=== PATIENT | male | born 1970 | race Caucasian/White ===

== ENCOUNTER → 2016-08-28 | Outpatient (CLI) | payer OTHER ==
[~2016-08-28] MED LIST: ALBUAER2 INH; INSU1INJ23 SC; LISI-461 PO
--- NOTE | 2016-08-28 13:37 | DIAGNOSTIC IMAGING REPORT ---
TWO VIEW CHEST CLINICAL HISTORY: Cough. FINDINGS: PA and lateral chest radiographs are compared to chest x-ray and chest CT dated 07/30/2015. The cardiomediastinal silhouette is unremarkable. There is mild patchy airspace consolidation seen only on the lateral view, likely in the retrocardiac region. The lungs and pleural spaces are otherwise clear. There is no pneumothorax. The bony thorax appears intact. IMPRESSION: Suspect mild patchy airspace consolidation in the retrocardiac region only seen on the lateral projection. Correlate clinically for evidence of pneumonia. Electronically signed by: Xavier Shay M.D. 08/28/2016 1:35 PM
== END | disposition home or self-care (01) ==
LOC: C.RAD1850 11:27
PROVIDERS: ATTEND Internal Medicine
DX: R05 Cough (principal)

== ENCOUNTER → 2016-09-04 | Outpatient (CLI) | payer OTHER ==
--- NOTE | 2016-09-04 15:02 | DIAGNOSTIC IMAGING REPORT ---
CHEST 2 VIEWS ROUTINE CLINICAL HISTORY: J15.9 Bacterial pneumonia COMPARISON STUDY: 1-17 FINDINGS: The cardiac and mediastinal contours are normal. There is no evidence of focal pulmonary consolidation. There is no evidence of failure. No pleural effusions are visualized.[ IMPRESSION: No active disease in the chest. Electronically signed by: Bhanu Montalvo M.D. 09/04/2016 3:00 PM Dictated Date/Time: 09/04/2016 3:00 PM
== END | disposition home or self-care (01) ==
LOC: C.RAD1850 14:53
PROVIDERS: ATTEND Internal Medicine
DX: J15.9 Unspecified bacterial pneumonia (principal)

== ENCOUNTER → 2016-09-07 | Outpatient (CLI) | payer OTHER ==
--- NOTE | 2016-09-07 17:50 | DIAGNOSTIC IMAGING REPORT ---
LEFT RIBS UNILATERAL WITH PA CHEST CLINICAL HISTORY: Left-sided rib pain. Cough. COMPARISON STUDY: Chest x-ray dated 09/04/2016 FINDINGS: The erect chest reveals no pneumothorax. There is no focal pulmonary consolidation. There are minor left basilar atelectatic changes. No left-sided rib fractures are visualized. IMPRESSION: No evidence of pneumothorax. No left-sided rib fractures are visualized. Electronically signed by: Bhanu Montalvo M.D. 09/07/2016 5:48 PM Dictated Date/Time: 09/07/2016 5:47 PM
== END | disposition home or self-care (01) ==
LOC: C.RAD 17:13
PROVIDERS: ATTEND Internal Medicine
DX: R07.81 Pleurodynia (principal)

== ENCOUNTER → 2017-01-25 | Outpatient (CLI) | payer OTHER ==
--- NOTE | 2017-01-25 13:22 | DIAGNOSTIC IMAGING REPORT ---
ULTRASOUND RIGHT LOWER EXTREMITY VENOUS CLINICAL HISTORY: Right calf pain. COMPARISON STUDY: No priors. TECHNIQUE: Real-time, grayscale, and color Doppler sonography of the deep veins of the right lower extremity was performed from the inguinal crease to the calf. Compression and augmentation were utilized. FINDINGS: There is no sonographic evidence of deep venous thrombosis identified in the right lower extremity. The common femoral, superficial femoral, and popliteal veins are patent and normally compressible. The greater saphenous vein and the profunda femoris vein at the junction with the common femoral vein are clear. The visualized calf veins are patent. IMPRESSION: There is no sonographic evidence of deep venous thrombosis identified in the right lower extremity. Electronically signed by: Xavier Shay M.D. 01/25/2017 1:20 PM Dictated Date/Time: 01/25/2017 1:20 PM
== END | disposition home or self-care (01) ==
LOC: C.ULTR 12:48
PROVIDERS: ATTEND Internal Medicine
DX: M79.669 Pain in unspecified lower leg (principal)

== ENCOUNTER → 2017-02-26 | Outpatient (CLI) | payer OTHER ==
[2017-02-26 12:46] LABS: ESTIMATED AVERAGE GLUCOSE 243 mg/dl; HA1C FLAG Normal (Normal)
[2017-02-26 13:17] LABS: BLOOD UREA NITROGEN 17 mg/dl (7-18); BUN/CREATININE RATIO 19.4 (10-20); CALCIUM 9.1 mg/dl (8.5-10.1); CARBON DIOXIDE 29 mmol/L (21-32); CHLORIDE 103 mmol/L (98-107); CREATININE 0.89 mg/dl (0.60-1.40); GLUCOSE 257 mg/dl (70-99); POTASSIUM 4.5 mmol/L (3.5-5.1); SODIUM 138 mmol/L (136-145)
== END | disposition home or self-care (01) ==
LOC: C.LABPBG 08:28
PROVIDERS: ATTEND Internal Medicine
DX: E11.65 Type 2 diabetes mellitus with hyperglycemia (principal); E55.9 Vitamin D deficiency, unspecified; E05.90 Thyrotoxicosis, unspecified without thyrotoxic crisis or storm

== ENCOUNTER → 2017-04-26 | Outpatient (CLI) | payer OTHER | END | disposition home or self-care (01) | LOC: C.LAB1850 16:53 | PROVIDERS: ATTEND Internal Medicine | DX: E05.90 Thyrotoxicosis, unspecified without thyrotoxic crisis or storm (principal) ==

== ENCOUNTER → 2017-08-04 | Outpatient (CLI) | payer OTHER ==
[2017-08-04 12:04] LABS: ESTIMATED AVERAGE GLUCOSE 220 mg/dl; HA1C FLAG Normal (Normal)
[2017-08-04 12:29] LABS: THYROID STIMULATING HORMONE 1.92 uIu/ml (0.300-4.500)
== END | disposition home or self-care (01) ==
LOC: C.LAB 10:43
PROVIDERS: ATTEND Physician Assistant
DX: E03.9 Hypothyroidism, unspecified (principal); E11.65 Type 2 diabetes mellitus with hyperglycemia

== ENCOUNTER → 2017-09-28 | Outpatient (CLI) | payer OTHER ==
--- NOTE | 2017-09-28 12:36 | DIAGNOSTIC IMAGING REPORT ---
ULTRASOUND BILATERAL LOWER EXTREMITY VENOUS CLINICAL HISTORY: Bilateral leg pain. COMPARISON STUDY: Right lower extremity venous ultrasound dated 01/25/2017. TECHNIQUE: Real-time, grayscale, and color Doppler sonography of the deep veins of the right and left lower extremity was performed from the inguinal crease to the calf. Compression and augmentation were utilized. FINDINGS: There is no sonographic evidence of deep venous thrombosis identified in the right or left lower extremity. The common femoral, superficial femoral, and popliteal veins are patent and normally compressible bilaterally. The greater saphenous vein and the profunda femoris vein at the junction with the common femoral vein are clear in both legs. The visualized calf veins are patent bilaterally. IMPRESSION: There is no sonographic evidence of deep venous thrombosis identified in the right or left lower extremity. Electronically signed by: Xavier Shay M.D. 09/28/2017 12:35 PM Dictated Date/Time: 09/28/2017 12:34 PM
== END | disposition home or self-care (01) ==
LOC: C.ULTRBC 12:10
PROVIDERS: ATTEND Podiatrist
DX: I82.403 Acute embolism and thrombosis of unspecified deep veins of lower extremity, bilateral (principal)

== ENCOUNTER → 2017-12-24 | Outpatient (CLI) | payer OTHER ==
--- NOTE | 2017-12-24 10:57 | DIAGNOSTIC IMAGING REPORT ---
MRI OF THE RIGHT ANKLE WITHOUT CONTRAST CLINICAL HISTORY: Right ankle pain. Osteoarthritis. COMPARISON STUDY: Right ankle radiographs January 15, 2015. TECHNIQUE: Utilizing a 1.5 Carole magnet and dedicated coil, multiplanar, multiecho imaging of the right ankle was performed without intravenous or intraarticular contrast. FINDINGS: Note is made of subchondral cystic change within the medial talar dome that measures 2 x 1 x 1.2 cm. This is moderate associated marrow edema. There is moderate associated chondromalacia with mild subchondral signal abnormality within the distal left tibia consistent with osteoarthritis. No loose bodies are identified within the tibiotalar joint. There is no tibiotalar talar joint effusion. By MRI criteria, this represents a stable osteochondral lesion. Subtalar joint is within normal limits. Achilles tendon is intact. Flexor, peroneal and extensor tendons are intact. Intrinsic ligaments of the right ankle are intact. No suspicious marrow replacement. No mass or fluid collection is shown. IMPRESSION: 2 x 1 x 1.2 cm focus of subchondral cystic change within the medial talar dome with moderate associated marrow edema consistent with a stable osteochondral lesion with secondary osteoarthritis. Electronically signed by: Kennedy Jorge M.D. 12/24/2017 10:56 AM Dictated Date/Time: 12/24/2017 10:46 AM
--- NOTE | 2017-12-24 11:05 | DIAGNOSTIC IMAGING REPORT ---
RIGHT OF THE RIGHT MID AND FOREFOOT WITHOUT CONTRAST CLINICAL HISTORY: Right foot and ankle pain. Osteoarthritis. COMPARISON STUDY: Right ankle and foot radiographs January 15, 2015. TECHNIQUE: Utilizing a 1.5 Carole magnet, multiplanar, multiecho imaging of the right mid and forefoot was performed without intravenous contrast. Please note that the right ankle and right hindfoot were imaged on the right ankle MRI. FINDINGS: Alignment of the right midfoot and forefoot is anatomic. The tarsometatarsal joints are intact and there is no marrow edema or marrow replacement. No erosions are identified. No mass or fluid collection is identified. Visualized portions of the flexor and extensor tendons are intact. There is no evidence for significant osteoarthritis within the right midfoot or forefoot. IMPRESSION: Unremarkable MRI of the right mid and forefoot. Electronically signed by: Kennedy Jorge M.D. 12/24/2017 11:04 AM Dictated Date/Time: 12/24/2017 11:00 AM
== END | disposition home or self-care (01) ==
LOC: C.MRI 09:20
PROVIDERS: ATTEND Podiatrist
DX: M19.071 Primary osteoarthritis, right ankle and foot (principal); M65.871 Other synovitis and tenosynovitis, right ankle and foot; E11.42 Type 2 diabetes mellitus with diabetic polyneuropathy

== ENCOUNTER 2023-09-07 18:24 | Observation (INO) ==
--- NOTE | 2023-09-07 18:35 | ED Triage Note ---
Date of Service September 07, 2023 Provider in Triage Author: Merline Haynes History of Present Illness This patient was briefly evaluated while in triage. An abbreviated physical exam was performed. This patient is a 53-year-old Male who presents to the ED for evaluation of chest pain. He states that it started 2 days ago. He states it is more of a pressure than a pain and is intermittent. He does report it is exertional. He has some shortness of breath when active. He states his blood pressure was elevated when they checked it at work. He does report a cough since he had RSV a few weeks ago. He denies any cardiac history, does report a history of hypertension. Physical Exam VITALS: Vitals are noted on the nurse's note and reviewed by myself. GENERAL: This is a 53-year-old male, in no acute distress, nondiaphoretic, well- developed well-nourished. HEART: Tachycardic, regular rhythm without murmurs gallops or rubs. LUNGS: Clear to auscultation bilaterally without wheezes, rales or rhonchi. NEURO: Patient was alert and oriented to person place and time. Initial orders for labs and / or imaging were placed and patient was placed in the waiting area until a bed is available. Please see further documentation for the full ED course. MDM / Impression Impression Impression: Chest pain Impression: Chest pain Qualifiers: Chest pain type: unspecified Qualified Code(s): R07.9 - Chest pain, unspecified
[2023-09-07 19:06] LABS: Basophils # (auto) 0.05 K/uL (0.00-0.20); Basophils % (auto) 0.4 %; Eosinophils # (auto) 0.13 K/uL (0.00-0.50); Eosinophils % (auto) 1.2 %; Hematocrit (blood only) 46.7 % (42.0-52.0); Hemoglobin 15.7 g/dl (14.0-18.0); Immature Granulocytes # (auto) 0.05 K/uL (0.01-0.20); Immature Granulocytes % (auto) 0.4 %; Lymphocytes # (auto) 2.68 K/uL (1.20-3.40); Lymphocytes % (auto) 23.9 %; Mean Corpuscular Hemoglobin 28.8 pg (25.0-34.0); Mean Corpuscular Hgb Conc 33.6 g/dL (32.0-36.0); Mean Corpuscular Volume 85.5 fL (80.0-100.0); Mean Platelet Volume 10.2 fL (9.4-12.4); Monocytes % (auto) 6.3 %; Neutrophils # (auto) 7.59 K/uL (1.40-6.50); Neutrophils % (auto) 67.8 %; Platelet Count 339 K/uL (130-400); RDW Coefficient of Variation 13.1 % (11.5-14.5); RDW Standard Deviation 40.5 fL (36.4-46.3); Red Blood Count 5.46 M/uL (4.70-6.10)
--- NOTE | 2023-09-07 19:15 | XRay Report ---
SINGLE VIEW CHEST CLINICAL HISTORY: Atypical chest pain FINDINGS: A PA chest radiograph is compared to study dated 08/05/2023. The cardiomediastinal silhouet te is unremarkable. The lungs and pleural spaces are clear. No pneumothorax is seen. The bony thorax is grossly intact. Cholecystectomy clips are seen in the right upper quadrant. IMPRESSION: No active disease in the chest. ACT 112: Negative or not required by law. Electronically signed by: Xavier Shay M.D. 09/07/2023 7:14 PM
[2023-09-07 19:20] LABS: Albumin Globulin Ratio 1.5 (0.9-2); Albumin Level 4.7 gm/dl (3.4-5.0); BUN Creatinine Ratio 21.7 (10-20); Bilirubin,Total 0.4 mg/dl (0.2-1.0); Calcium 9.7 mg/dl (8.6-10.3); Est GFR (African American) 114.8 ml/min; Est GFR (Non-African American) 99.1 ml/min; Globulin 3.1 gm/dl (2.5-4.0); Potassium 4.2 mmol/L (3.5-5.1); Total Protein 7.8 gm/dl (6.0-8.3)
[2023-09-07 19:38] LABS: INR 0.9 (0.9-1.1); Partial Thromboplastin Ratio 0.9; Partial Thromboplastin Time 26 Seconds (21-31); Prothrombin Time 10.3 Seconds (9.0-12.0)
--- NOTE | 2023-09-07 20:33 | Emergency Department Note ---
Impression & Plan Chest pain ADMIT ED Provider Note HPI: History obtained from patient The patient is a 53-year-old gentleman with history of insulin-dependent diabetes, hypertension, presents emergency department chief complaint of chest pain or shortness of breath with exertion. Patient states he has been having the symptoms for about the past 2 days. Patient states that his dyspnea is worse than his chest pain, he states he gets a sensation of chest "tightness" centrally in his chest. Patient denies any abdominal pain, denies any nausea or vomiting. On arrival here to the ED the patient is mildly hypertensive, tachycardic at 108, he is otherwise in no acute distress. ROS: - Per HPI Differential Diagnosis: Acute coronary syndrome, pulmonary embolism, aortic dissection, pneumothorax, costochondritis, amongst other potential pathologies. *Outpatient medications and allergy history reviewed. PE: General: Alert HEENT: Normocephalic, trachea midline Eyes: Extraocular eye movement is intact, no scleral erythema Pulmonary: Clear to auscultation bilaterally, no wheezing Cardio: Regular rate and rhythm GI: Abdomen is soft to palpation : No suprapubic tenderness MSK: No evidence of trauma or malformation of the extremities, no edema Skin: No evidence of rash Neuro: Alert, no focal deficits Psychiatric: Cooperative INDEPENDENT INTERPRETATIONS: quality assurance monitor chassis: (As interpreted by myself): - An order was placed for continuous cardiac monitoring - Patient was noted to be in sinus rhythm with a rate of 95 EKG: (As interpreted by myself): Rate: 107 Rhythm: Sinus tachycardia Intervals: Within normal limits ST changes: No ST elevation Time: 1838 Chest x-ray: (As interpreted by myself): No acute disease Medical Decision Making: Shortly after the patient arrived IV was established and lab work obtained, patient was placed on conveyor monitor. Lab work shows mild leukocytosis at 11.2, hemoglobin is normal, platelet count is normal, CMP does not show any evidence of any critical findings, troponin is negative x 1. EKG does not show any acute ischemic changes, does show some LVH. Chest x-ray per my interpretation does not show any acute process. Patient denies any active chest pain but states he has been having some chest pain with exertion recently. Given his multiple risk factors I think he should be admitted to the hospital to which the patient is in agreement. Heart score is noted to be 5. [facility] hospitalist service was consulted for admission and the patient was placed for admission in stable condition. Consultants/Discussions held with other healthcare providers: -Hospitalist, Dr. Hickey Disposition discussion held by myself with: -Patient Diagnosis: 1. Chest pain, acute, exertional 2. History of insulin-dependent diabetes 3. History of hypertension 4. Family history of coronary artery disease Disposition: Admission Brent Boss DO Emergency Medicine Past Med/Surg History Medical History (Updated 09/07/23 @ 23:45 by Brent Boss DO) Tachycardia Chronic, HR in low 100s dating back 2+ years ago History of COVID-19 Dx 10/2020 Hx of migraines DJD (degenerative joint disease), cervical Diabetes mellitus, type 2 Uses freestyle cesar monitoring device Hypothyroidism Peripheral neuropathy Hypertension Hyperlipidemia Surgical History History of esophagogastroduodenoscopy (EGD) History of cholecystectomy History of repair of rotator cuff RT History of knee surgery LEFT TENDON REPAIR History of colonoscopy History of tooth extraction Family History Mother Diabetes Cataract Hypertension Father Diabetes Family history of reaction to anesthesia Grandmother (Maternal) Alzheimer disease Myocardial infarction Grandmother (Paternal) Myocardial infarction Brother MVA (motor vehicle accident) Denies family history of Colon cancer Ovarian cancer Prostate cancer Breast cancer Social History Smoking Status: Never smoker Second Hand Exposure: No; Do You Dip or Chew Tobacco: No; Hx Alcohol Use: No Hx Substance Use: No Preferred Language: Dutch Communication Ability: Effective Visual Impairment: No Limitations Field Scout Required: No Beliefs That Will Affect Care: None marital status: Current Living Situation: Spouse, Parent and Family Current Living Situation Comment: Lives with , daughter and mother current occupational status: employed Feels Safe at Home: Yes Childhood Exposure to Second-Hand Smoke: Yes Dental Care, Regularly: No Physical Activity Frequency: Does not Exercise Seatbelt Use: always Sunscreen Use: Yes Assistive Devices: Glasses Allergies Allergies Allergy/AdvReac Type Severity Reaction Status Date / Time metformin AdvReac Intermediate Diarrhea Verified 08/16/23 14:56 Home Meds Home Medications Medication Instructions Recorded Confirmed aspirin 81 mg tablet,delayed 81 mg PO QAM 07/07/21 09/07/23 release (Adult Low Dose Aspirin) pantoprazole 40 mg tablet,delayed 40 mg PO QAM 01/30/22 09/07/23 release glucagon 3 mg/actuation nasal spray 3 mg intranasal ONCE PRN 09/07/23 09/07/23 Hypoglycemia levothyroxine 75 mcg tablet 75 mcg PO DAILYBB 09/07/23 09/07/23 Previous Rx's Medication Instructions Recorded blood sugar diagnostic (OneTouch #300 ea 12/26/21 Verio test strips) gabapentin 600 mg tablet 600 mg PO BID #60 tabs 07/28/22 losartan 50 mg tablet 50 mg PO QAM #30 tabs 07/31/22 pen needle, diabetic 32 gauge x #400 ea 12/15/22 5/32" (BD Radha 2nd Gen Pen Needle) insulin syringe-needle U-100 1 mL #300 ea 01/17/23 31 gauge x 15/64" (BD Veo Insulin Syringe Ultra-Fine) FreeStyle Cesar 3 Sensor #6 ea 02/12/23 (blood-glucose sensor) insulin regular hum U-500 conc 500 See Rx Instructions subcut QPM 30 06/14/23 unit/mL(3 mL) subcut pen (Humulin days #24 mL R U-500 (Conc) Insulin Kwikpen) albuterol sulfate 90 mcg/actuation 2 puff inhalation QID PRN 08/16/23 aerosol inhaler shortness of breath or wheezing #8.5 grams Results & Data (ED) Vital Signs Vital Signs - 24 hr 09/07/23 18:32 09/07/23 20:29 09/07/23 20:30 Temperature 36.2 C L Temperature Source Temporal Artery Scan Pulse Rate 113 H Pulse Rate [Apical] 108 H Pulse Rate from SpO2 Sensor Pulse Rhythm Regular Pulse Strength Normal Respiratory Rate 20 18 Respiratory Effort / Characteristics Non-Labored Spontaneous Non-Labored Spontaneous Respiratory Depth Normal Normal Respiratory Pattern Regular Regular Blood Pressure 139/79 Blood Pressure [Right Arm] 140/109 H Blood Pressure Mean 99 Blood Pressure Mean [Right Arm] 119 Blood Pressure Position Sitting Pulse Oximetry 95 95 Oxygen Delivery Method Room Air Room Air Room Air Oxygen Flow Rate 0 Sepsis Recent Fever Within 48 Hours No Sepsis New/Unexplained Change in Mental Status No Sepsis Action Taken by Nursing No Action Required 09/07/23 20:30 09/07/23 20:30 09/07/23 20:30 Temperature Temperature Source Pulse Rate 108 H 108 H 108 H Pulse Rate [Apical] Pulse Rate from SpO2 Sensor 108 H Pulse Rhythm Pulse Strength Respiratory Rate 20 Respiratory Effort / Characteristics Respiratory Depth Respiratory Pattern Blood Pressure Blood Pressure [Right Arm] Blood Pressure Mean Blood Pressure Mean [Right Arm] Blood Pressure Position Pulse Oximetry 96 96 Oxygen Delivery Method Room Air Oxygen Flow Rate Sepsis Recent Fever Within 48 Hours Sepsis New/Unexplained Change in Mental Status Sepsis Action Taken by Nursing 09/07/23 21:00 Temperature Temperature Source Pulse Rate 112 H Pulse Rate [Apical] Pulse Rate from SpO2 Sensor 112 H Pulse Rhythm Pulse Strength Respiratory Rate 19 Respiratory Effort / Characteristics Respiratory Depth Respiratory Pattern Blood Pressure Blood Pressure [Right Arm] Blood Pressure Mean Blood Pressure Mean [Right Arm] Blood Pressure Position Pulse Oximetry 96 Oxygen Delivery Method Oxygen Flow Rate Sepsis Recent Fever Within 48 Hours Sepsis New/Unexplained Change in Mental Status Sepsis Action Taken by Nursing Laboratory Data 09/07/23 18:38 09/07/23 18:38 Lab Results 09/07/23 Range/Units 18:38 WBC 11.20 H (4.8-10.8) K/ul RBC 5.46 (4.70-6.10) M/uL Hgb 15.7 (14.0-18.0) g/dl Hct 46.7 (42.0-52.0) % MCV 85.5 (80.0-100.0) fL MCH 28.8 (25.0-34.0) pg MCHC 33.6 (32.0-36.0) g/dL RDW Std Deviation 40.5 (36.4-46.3) fL RDW Coeff of [place] 13.1 (11.5-14.5) % Plt Count 339 (130-400) K/uL MPV 10.2 (9.4-12.4) fL Immature Gran % (Auto) 0.4 % Neut % (Auto) 67.8 % Lymph % (Auto) 23.9 % [place] % (Auto) 6.3 % Eos % (Auto) 1.2 % Baso % (Auto) 0.4 % Neut # (Auto) 7.59 H (1.40-6.50) K/uL Lymph # (Auto) 2.68 (1.20-3.40) K/uL [place] # (Auto) 0.70 H (0.11-0.59) K/uL Eos # (Auto) 0.13 (0.00-0.50) K/uL Baso # (Auto) 0.05 (0.00-0.20) K/uL Immature Gran # (Auto) 0.05 (0.01-0.20) K/uL PT 10.3 (9.0-12.0) Seconds INR 0.9 (0.9-1.1) APTT 26 (21-31) Seconds PTT Ratio 0.9 Sodium 140 (136-145) mmol/L Potassium 4.2 (3.5-5.1) mmol/L Chloride 104 (98-107) mmol/L Carbon Dioxide 29 (21-32) mmol/L Anion Gap 7 (3-11) BUN 18 (6-23) mg/dl Creatinine 0.83 (0.6-1.4) mg/dl Est Cr Clr Drug Dosing 124.0 ml/min Est GFR ( Amer) 114.8 ml/min Est GFR (Non-Af Amer) 99.1 ml/min BUN/Creatinine Ratio 21.7 H (10-20) Glucose 154 H (70-99(Fasting)) mg/dl Calcium 9.7 (8.6-10.3) mg/dl Total Bilirubin 0.4 (0.2-1.0) mg/dl AST 12 L (13-39) U/L ALT 13 (7-52) U/L Alkaline Phosphatase 91 (34-104) U/L Troponin I High Sens 4.0 (0-20) pg/ml Total Protein 7.8 (6.0-8.3) gm/dl Albumin 4.7 (3.4-5.0) gm/dl Globulin 3.1 (2.5-4.0) gm/dl Albumin/Globulin Ratio 1.5 (0.9-2) Imaging Data Radiologist's Impression: Chest X-Ray 09/07/23 18:45 SINGLE VIEW CHEST CLINICAL HISTORY: Atypical chest pain FINDINGS: A PA chest radiograph is compared to study dated 08/05/2023. The cardiomediastinal silhouette is unremarkable. The lungs and pleural spaces are clear. No pneumothorax is seen. The bony thorax is grossly intact. Cholecystectomy clips are seen in the right upper quadrant. IMPRESSION: No active disease in the chest. ACT 112: Negative or not required by law. Electronically signed by: Xavier Shay M.D. 09/07/2023 7:14 PM Discharge Plan Visit Data Chief Complaint: Chest Pain Stated Complaint: CHEST DISCOMFORT, HIGH BP,160/87 ED Provider: Brent Boss Discharge Problem: Chest pain Patient Disposition: Admitted As Inpatient Discharge Instructions Interventions: ED Discharge Assessment Last Done: 09/07/23 23:28 Discharge Problem: Chest pain Qualifiers: Chest pain type: unspecified Qualified Code(s): R07.9 - Chest pain, unspecified
--- NOTE | 2023-09-07 21:18 | History & Physical Report ---
Date of Service September 07, 2023 Assessment & Plan (1) Chest pain: Plan: -Pt presents with 2 days of chest pressure w/ accompanying dyspnea -Negative troponin on admission, EKG w/o acute ST change -Unlikely to represent cardiac chest pain/ACS at present, suspect possible bronchospasm as etiology -TTE ordered -Consider repeat of stress testing as outpatient -Telemetry monitoring (2) Tachycardia: Plan: -Mild sinus tachycardia in 100s since admission -Per previous chart review and pt, this appears to be his baseline over past few years -No electrolyte abnormalities noted -Telemetry monitoring (3) Hypertension: Plan: -Mildly hypertensive 140/109 on admission -Continue losartan (4) Diabetes mellitus type 2, uncontrolled: Plan: -A1C 10.7% in 05/2023 -Lantus, SSI while in hospital. Will adjust dosing as needed for BSG control -Continue gabapentin -Monitor BSGs (5) Hypothyroidism: Plan: -Continue levothyroxine (6) GERD (gastroesophageal reflux disease): Plan: -Continue pantoprazole Plan FENGI: DM2 Code status: Full DVT prophylaxis: Lovenox Isolation: None Unit: Medical/surgical with telemetry Disposition planning: Anticipate home History of Present Illness Chief Complaint: Chest pain Primary Care Provider: Joel Hines MD Pt is 53 yo M with PMH IDDM2 w/ peripheral neuropathy, HTN, GERD, hypothyroidism presenting with chest pain. Pt reports onset of chest pressure 2 days prior after exertion while shoveling snow. Chest pressure usually accompanied by dyspnea. Located midsternal, tight sensation, non-radiating, moderate severity. Symptoms occur consistently with exertion, do not occur at rest. No prior history of similar symptoms, had negative stress testing over 10 years prior. Pt arrived to ER with mild tachycardia in 100s. Initial evaluation with unremarkable CXR, CBC, CMP, troponin. EKG NSR w/o acute ST change. At present, pt reports mild chest tightness but no dyspnea. No new complaints. Allergies Allergy/AdvReac Type Severity Reaction Status Date / Time metformin AdvReac Intermediate Diarrhea Verified 08/16/23 14:56 Home Medications Medication Instructions Recorded Confirmed Type aspirin 81 mg tablet,delayed 81 mg PO QAM 07/07/21 09/07/23 History release (Adult Low Dose Aspirin) blood sugar diagnostic (EarlyTracksuch #300 ea 12/26/21 09/07/23 Rx Verio test strips) pantoprazole 40 mg tablet,delayed 40 mg PO QAM 01/30/22 09/07/23 History release gabapentin 600 mg tablet 600 mg PO BID #60 tabs 07/28/22 09/07/23 Rx losartan 50 mg tablet 50 mg PO QAM #30 tabs 07/31/22 09/07/23 Rx pen needle, diabetic 32 gauge x #400 ea 12/15/22 09/07/23 Rx 5/32" (BD Radha 2nd Gen Pen Needle) insulin syringe-needle U-100 1 mL #300 ea 01/17/23 09/07/23 Rx 31 gauge x 15/64" (BD Veo Insulin Syringe Ultra-Fine) FreeStyle Cesar 3 Sensor #6 ea 02/12/23 09/07/23 Rx (blood-glucose sensor) insulin regular hum U-500 conc 500 See Rx Instructions subcut QPM 30 06/14/23 09/07/23 Rx unit/mL(3 mL) subcut pen (Humulin days #24 mL R U-500 (Conc) Insulin Kwikpen) albuterol sulfate 90 mcg/actuation 2 puff inhalation QID PRN 08/16/23 09/07/23 Rx aerosol inhaler shortness of breath or wheezing #8.5 grams glucagon 3 mg/actuation nasal spray 3 mg intranasal ONCE PRN 09/07/23 09/07/23 History Hypoglycemia levothyroxine 75 mcg tablet 75 mcg PO DAILYBB 09/07/23 09/07/23 History Past Med/Surg History Medical History (Updated 09/07/23 @ 23:45 by Brent Boss DO) Tachycardia Chronic, HR in low 100s dating back 2+ years ago History of COVID-19 Dx 10/2020 Hx of migraines DJD (degenerative joint disease), cervical Diabetes mellitus, type 2 Uses freestyle cesar monitoring device Hypothyroidism Peripheral neuropathy Hypertension Hyperlipidemia Surgical History History of esophagogastroduodenoscopy (EGD) History of cholecystectomy History of repair of rotator cuff RT History of knee surgery LEFT TENDON REPAIR History of colonoscopy History of tooth extraction Family History Mother Diabetes Cataract Hypertension Father Diabetes Family history of reaction to anesthesia Grandmother (Maternal) Alzheimer disease Myocardial infarction Grandmother (Paternal) Myocardial infarction Brother MVA (motor vehicle accident) Denies family history of Colon cancer Ovarian cancer Prostate cancer Breast cancer Social History Smoking Status: Never smoker Second Hand Exposure: No; Do You Dip or Chew Tobacco: No; Hx Alcohol Use: No Hx Substance Use: No Preferred Language: Micronesian Communication Ability: Effective Visual Impairment: No Limitations Highway Maintenance Supervisor Required: No Beliefs That Will Affect Care: None marital status: Current Living Situation: Spouse Current Living Situation Comment: Lives with , daughter and mother current occupational status: employed Feels Safe at Home: Yes Safety Concerns: Feels Safe At This Time Childhood Exposure to Second-Hand Smoke: Yes Dental Care, Regularly: No Physical Activity Frequency: Does not Exercise Seatbelt Use: always Sunscreen Use: Yes Assistive Devices: Glasses Review of Systems Review of Systems: Per HPI/Subjective Physical Exam Physical Exam: General: well-appearing, no acute distress HEENT: PERRL, EOMI, conjunctivae clear without injection, anicteric sclerae, moist mucous membranes, clear oropharynx without exudate or erythema Neck: supple, trachea midline, no thyromegaly, no JVD, no cervical lymphadenopathy CV: RRR, normal S1 and S2, no murmurs Resp: CTAB, no increased work of breathing, no crackles or wheezes Abd: Soft, nontender, nondistended, no guarding or rebound, no hepatosplenomegaly MSK: Normal bulk of all four extremities. No reproducible chest pain with palpation, no chest wall tenderness to palpation Neuro: AOx3, no focal motor or sensory deficits Skin: no rashes or lesions, warm and dry Ext: no LE peripheral edema or erythema, capillary refill <2s in all four extremities, 2+ LE peripheral pulses b/l Results & Data Results & Data Vital Signs (Past 12 Hours) Vital Signs Temp Pulse Pulse Resp BP BP Pulse Ox 09/07/23 20:30 108 H 96 09/07/23 20:30 09/07/23 20:29 108 H 18 140/109 H 95 09/07/23 18:32 36.2 C L 113 H 20 139/79 95 O2 Del Method O2 Flow Rate 01/12/24 20:30 Room Air 09/07/23 20:30 Room Air 0 09/07/23 20:29 Room Air 09/07/23 18:32 Room Air Code Status & VTE Plan VTE Prophylaxis Plan VTE Prophylaxis will be ordered: Yes Supervising Physician Co-Signing Physician Notes Attending addendum: I have physically seen this patient, have supervised the medical residents activities, and agree with the H&P unless as otherwise noted. Assessment and Plan: Chest pain/pressure/hypertension- The patient will be admitted to telemetry for serial cardiac enzymes, serial EKG's, cardiac rhythm monitoring and a 2-D echocardiogram with Dopplers. Symptoms of 2 days duration, with negative troponin on admission Continue aspirin 81 mg daily, losartan 50 mg daily Diabetes mellitus- A1c 10.7 on 06/18 Patient did have a low of 67 while in the ED due to not eating all day, which rebounded with food Insulin glargine and SSI as noted GERD- Continue pantoprazole Resident Activity Tracking Resident Involvement: Resident Care Provided Care Provided: Adult Hospital Medicine
[2023-09-07] MEDS ORDERED: GLUCOSE 10 TAB/TUBE PO PRN (23:28)
[2023-09-07] MEDS ORDERED: CARBOHYDRATES FOR HYPOGLYCEMIA PO PRN (23:28)
[2023-09-07] MEDS ORDERED: ACETAMINOPHEN 325 MG TAB PO PRN (23:28)
[2023-09-07] MEDS ORDERED: ALBUTEROL HFA 8 GM INHALER INH PRN (23:28)
[2023-09-07] MEDS ORDERED: DEXTROSE 50% 50 ML SYRINGE IV PRN (23:28)
[2023-09-07] MEDS ORDERED: GLUCOSE 40% GEL 15 GM TUBE PO PRN (23:28)
[2023-09-07] MEDS ORDERED: GLUCAGON FOR INJ 1 MG VIAL SQ PRN (23:28)
[2023-09-07] MEDS ORDERED: ONDANSETRON INJ 2 MG/ML 2 ML VIAL IV PRN (23:28)
--- NOTE | 2023-09-08 01:32 | Billing Data ---
Date of Service September 08, 2023 Coding Level of Care Code 94448 INT INP/OBS CARE
[2023-09-08] MEDS ORDERED: SODIUM CHLORIDE 0.65% NA SOLN 45 ML (OCEAN) PRN (02:15)
[2023-09-08] MEDS ORDERED: FLUTICASONE PROPIONATE NA SPR 16 GM BTL PRN (02:15)
[2023-09-08] MEDS ORDERED: LEVOTHYROXINE SODIUM 75 MCG TABLET PO SCH (06:30)
[2023-09-08 06:50] LABS: Hematocrit (blood only) 41.4 % (42.0-52.0); Mean Corpuscular Hgb Conc 33.8 g/dL (32.0-36.0); Mean Corpuscular Volume 85.7 fL (80.0-100.0); Platelet Count 282 K/uL (130-400); RDW Coefficient of Variation 13.1 % (11.5-14.5); Red Blood Count 4.83 M/uL (4.70-6.10); White Blood Count 8.65 K/ul (4.8-10.8)
[2023-09-08 07:11] LABS: BUN Creatinine Ratio 22.1 (10-20); Calcium 8.5 mg/dl (8.6-10.3); Creatinine Clr Calc Pharmacy 132.7 ml/min; Est GFR (African American) 118.4 ml/min; Est GFR (Non-African American) 102.2 ml/min; Potassium 4.1 mmol/L (3.5-5.1)
--- NOTE | 2023-09-08 07:32 | Hospitalist Progress Note ---
"Date of Service September 08, 2023 Assessment & Plan (1) Chest pain: Plan: Tano is a 53M with past medical history of GERD, uncontrolled T2DM, HLD, and hypothyroidism who presents for evaluation of 2 days of chest pain and dyspnea. Original ED workup was unremarkable, patient was admitted to complete cardiac workup. Chest Pain | Dyspnea - Patient presented w/ 2 days of chest pressure/tightness with associated dyspnea during exertion, now resolved - Troponin negative - EKG w/o ST or T wave changes - TTE performed, results pending - Continue telemetry monitoring inpatient - Plan outpatient stress testing - GERD: Potential explanation for symptoms, but patient endorses lack of typical reflux symptoms w/o change in home medication regimen, patient endorses strict adherence to diet low in acidic foods. - SMILEY: Patient endorses worsening daytime fatigue, headaches, and significant snoring. In setting of HTN and elevated BMI concern exists for SMILEY/OHS. Would recommend that patient complete sleep study (polysomnography) as an outpatient. - DM2: Uncontrolled, counselled patient that while DM is not the cause of his current presentation, it is important to work towards better glucose control as high sugars clog arteries and will lead to microvascular change and potentially CAD/CVD in the long run --- Cardiac origin remains unlikely, potential etiology; bronchospasm vs GERD vs uncontrolled SMILEY/OHS Chronic Conditions: GERD: Continue Pantoprazole Hypothyroidism: Continue Levothyroxine DM2: A1c 10.7 05/2023, continue Lantus/SSI inpatient, adjust PRN for BSG control, continue Gabapentin HTN: Mild HTN 140/109 on presentation, continue Losartan Tachycardia: patient's baseline around 100 bpm, no electrolyte disturbances, ongoing telemetry (2) Tachycardia: (3) Hypertension: (4) Diabetes mellitus type 2, uncontrolled: (5) Hypothyroidism: (6) GERD (gastroesophageal reflux disease): Plan FENGI: DM2 Code status: Full DVT prophylaxis: Lovenox Isolation: None Unit: Medical/surgical with telemetry Disposition planning: Anticipate home Admission and Anticipated Discharge Date Admission Date: September 07, 2023 Subjective 09/08: Patient resting comfortable in bed upon arrival. He notes that he has not had chest discomfort or dyspnea since arrival. Patient states that over the last 3-4 weeks his family and colleagues have been noting that he appears more tired than normal, he states that he is not awakening rested, is having more headaches, and had been told he snores loudly in his sleep. Patient denies sharp stabbing chest pain or radiation down his arm, but instead notes a generalized tight sensation in his chest with associated dyspnea. He notes that this feeling is only present with exertion. Patient denies LE edema, claudication, or orthopnea. Patient has GERD at baseline, but does not feel like his sx have been worsening, he notes that he is very careful to avoid acidic foods. He does note that over the last 2 weeks he has had a burning/dry sensation at the top of his throat when he awakens in the morning. Tano denies palpitations, fevers, chills, abdominal pain, or bowel/bladder changes. Review of Systems Review of Systems: Per HPI/Subjective Physical Exam Physical Exam: General: well-appearing, no acute distress HEENT: NCAT, PERRLA/EOMI, MMM, no oropharyngeal erythema, poor oropharyngeal clearance Neck: Soft, no LAD, no JVD, no thyromegaly, increased neck circumference CV: RRR, normal S1 and S2, no murmurs Resp: CTAB, no increased work of breathing, no crackles or wheezes Abd: Soft, nontender, nondistended, no guarding or rebound, no hepatosplenomegaly Neuro: AOx3, no focal motor or sensory deficits Skin: no rashes or lesions, warm and dry Ext: no LE peripheral edema or erythema, capillary refill <2s in all four extremities, 2+ LE peripheral pulses b/l Results & Data Results & Data Vital Signs (Past 12 Hours) Vital Signs Temp Pulse Pulse Resp BP BP Pulse Ox 09/08/23 03:13 37 C 100 H 18 144/84 H 92 09/08/23 02:16 98 H 09/08/23 00:20 99 H 09/08/23 00:05 100 H 14 139/79 98 09/07/23 23:52 09/07/23 23:52 100 H 14 125/75 95 09/07/23 22:59 97 H 14 117/71 92 09/07/23 22:59 90 09/07/23 22:30 102 H 24 94 09/07/23 22:00 105 H 21 92 09/07/23 21:30 110 H 22 161/94 H 94 09/07/23 21:00 112 H 19 96 09/07/23 20:30 108 H 09/07/23 20:30 108 H 20 96 09/07/23 20:30 108 H 96 09/07/23 20:30 09/07/23 20:29 108 H 18 140/109 H 95 Pulse Ox O2 Del Method O2 Del Method O2 Flow Rate 09/08/23 03:13 Room Air 09/08/23 02:16 09/08/23 00:20 09/08/23 00:05 Room Air 09/07/23 23:52 95 Room Air 09/07/23 23:52 Room Air 09/07/23 22:59 Room Air 09/07/23 22:59 Room Air 09/07/23 22:30 09/07/23 22:00 09/07/23 21:30 09/07/23 21:00 09/07/23 20:30 09/07/23 20:30 09/07/23 20:30 Room Air 09/07/23 20:30 Room Air 0 09/07/23 20:29 Room Air Resident Activity Tracking Resident Involvement: Resident Care Provided Care Provided: Adult Hospital Medicine"
[2023-09-08] MEDS: INSULIN ASPART PER UNIT CHARGE SC SCH ×2 (08:45→13:11)
[2023-09-08] MEDS ORDERED: ENOXAPARIN INJ 40 MG/0.4 ML SYR SQ SCH (09:00)
[2023-09-08] MEDS ORDERED: ASPIRIN 81 MG ECTAB PO SCH (09:00)
[2023-09-08] MEDS ORDERED: GABAPENTIN 600 MG TAB PO SCH (09:00)
[2023-09-08] MEDS ORDERED: LOSARTAN POTASSIUM 50 MG TAB PO SCH (09:00)
[2023-09-08] MEDS ORDERED: PANTOprazole 40 MG TAB PO SCH (09:00)
[2023-09-08] MEDS ORDERED: LANTUS PER UNIT CHARGE SQ SCH (09:00)
--- NOTE | 2023-09-08 14:35 | XCELERA ---
[id number]
--- NOTE | 2023-09-08 16:26 | Discharge Summary ---
Date of Service September 08, 2023 Admission HPI Per Admitting Provider Pt is 53 yo M with PMH IDDM2 w/ peripheral neuropathy, HTN, GERD, hypothyroidism presenting with chest pain. Pt reports onset of chest pressure 2 days prior after exertion while shoveling snow. Chest pressure usually accompanied by dyspnea. Located midsternal, tight sensation, non-radiating, moderate severity. Symptoms occur consistently with exertion, do not occur at rest. No prior history of similar symptoms, had negative stress testing over 10 years prior. Pt arrived to ER with mild tachycardia in 100s. Initial evaluation with unremarkable CXR, CBC, CMP, troponin. EKG NSR w/o acute ST change. At present, pt reports mild chest tightness but no dyspnea. No new complaints. Admission Exam Per Admitting Provider General: well-appearing, no acute distress HEENT: PERRL, EOMI, conjunctivae clear without injection, anicteric sclerae, moist mucous membranes, clear oropharynx without exudate or erythema Neck: supple, trachea midline, no thyromegaly, no JVD, no cervical lymphadenopathy CV: RRR, normal S1 and S2, no murmurs Resp: CTAB, no increased work of breathing, no crackles or wheezes Abd: Soft, nontender, nondistended, no guarding or rebound, no hepatosplenomegaly MSK: Normal bulk of all four extremities. No reproducible chest pain with palpation, no chest wall tenderness to palpation Neuro: AOx3, no focal motor or sensory deficits Skin: no rashes or lesions, warm and dry Ext: no LE peripheral edema or erythema, capillary refill <2s in all four extremities, 2+ LE peripheral pulses b/l Principal Diagnosis Chest Pain w/ Dyspnea Discharge Exam Gen: NAD, alert, interactive HEENT: Supple, no LAD, no thyromegaly, no JVD - Poor oropharyngeal clearance, no erythema or purulence - Increased neck circumference Resp:Non-labored, no wheezing/rhonchi/rales, CTAB CV:tachycardic, RR, normal S1/S2, no M/R/G Abd: Soft, non-distended, no TTP, normoactive bowels, no masses Extr: 2+ dp bilaterally, no edema Skin: No rashes lesions or erythema Ambulation Trial: No dyspnea on exertion, no reproducible chest pain with activity, breathing remained non-labored Discharge Data Allergies Allergy/AdvReac Type Severity Reaction Status Date / Time metformin AdvReac Intermediate Diarrhea Verified 08/16/23 14:56 Consultations 09/07/23 20:38 ED Decision to Admit Stat Hospital Course (1) Chest pain: (2) Tachycardia: (3) Hypertension: (4) Diabetes mellitus type 2, uncontrolled: (5) Hypothyroidism: (6) GERD (gastroesophageal reflux disease): Deepak Freedman is a 53M with PMH of uncontrolled T2DM w/ gastroparesis and peripheral neuropathy, HTN, hypothyroidism, HLD, and GERD who presented for evaluation of chest pain and dyspnea w/ exertion. Chest Pain | Dyspnea | Tachycardia - 2 days of chest pressure/tightness and dyspnea upon exertion, no prior history - Troponin negative - EKG w/o acute ST or T wave changes - Patient chronically tachycardic in high 90s-low 100s, no acute change - Echocardiogram unremarkable - Telemetry w/o acute change during admission --- Less likely cardiac in origin given negative testing, would recommend outpatient stress testing to complete cardiac evaluation and polysomnography for SMILEY/OHS evaluation --- Patient's symptoms resolved upon admission and were unable to be provoked with ambulation inpatient - GERD: Patient sx well controlled at baseline w/ PPI and acidic food avoidance, current symptoms not consistent with prior reflux symptoms. continue PPI. 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 f/u with endocrine. consider GLP1 agonist. - HTN - continue losartan. Elevated BMI & HTN, also endorsing daytime hypersomnolence, morning headaches, and loud snoring, recently now experiencing burning sensation in the back of his throat upon awakening in the morning, high suspicion exists for SMILEY/OHS, patient would benefit from outpatient polysomnography DVT prophylaxis: Lovenox inpatient Total Time Total Time Spent Total Time Spent (In Minutes): see attending attestation Discharge Plan Discharge Items Patient Disposition: Home - Self-Care Reason For Visit: CHEST PAIN Discharge Diagnosis: Non-Cardiac Chest Pain Activity: Per Instructions section Non-emergency contact: Primary Care Provider and Specialist Call non-emergency contact if: you have any medication questions and your symptoms worsen Follow-up/Referrals: ProJoel MD [Primary Care Provider] - Diet: Carb Consistent or DM2 and Heart Healthy Addtl Attending Provider Instructions: You were admitted to the hospital for chest tightness and shortness of breath. You received a comprehensive cardiac evaluation (troponin, EKG, Echocardiogram and telemetry monitoring) all of which were not supportive of a cardiac cause for your chest pain and shortness of breath. Upon discharge, I would encourage you to follow up with your primary care doctor for outpatient stress testing to fully complete your cardiac workup. It was noted that your reflux is well controlled at baseline, continue your GERD medications (Pantoprazole) upon discharge and avoidance of acidic foods. Based on your history of worsening daytime fatigue, headaches, not awakening rested, and significant nighttime snoring, it is likely that you have an underlying diagnosis of obstructive sleep apnea, in order to evaluate this and get you appropriately treated, I strongly encourage you to complete a sleep study (polysomnogram) outpatient. Please mention this to your PCP at your next visit. This is a potential trigger for your presentation of chest tightness and shortness of breath. In addition, we discussed better diabetes control, we reviewed avoidance of non- processed foods and substitution of foods with whole alternatives. 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 Currently you are managed on Humalog, but are continuing to have significantly uncontrolled sugars. It is very important that you follow up closely with your Ingot Stripper and Primary Care Provider. Given your elevated BMI and diagnoses of Type 2 Diabetes, you would likely benefit from a GLP-1 Class Medication (Ozempic/semaglutide). Medication Changes: - None Follow Up Visits: - Primary care provider (for stress testing and sleep study) - Ingot Stripper (form Diabetes medication management) Thank you for allowing me to be a part of your care, Dr. Onur Acuña Pending Studies at Discharge: No Stand-Alone Forms: My [facility], Work/School Release Medications and DC Order Prescriptions: Continued (DME) OneTouch Verio test strips Strip See Rx Instructions .Route Qty: 300 3RF Rx Instructions: test 3 times daily gabapentin 600 mg tablet 600 mg PO BID Qty: 60 2RF losartan 50 mg tablet 50 mg PO QAM Qty: 30 0RF (DME) insulin syringe-needle U-100 [BD Veo Insulin Syringe UF] 1 mL 31 gauge x 15/64" syringe See Rx Instructions .Route Qty: 300 1RF Rx Instructions: use TID Humulin R U-500 (Conc) Kwikpen 500 unit/mL (3 mL) insulin pen See Rx Instructions subcut QPM 30 Days Qty: 24 2RF Rx Instructions: 150 units at noon / 50 units at midnight aspirin [Adult Low Dose Aspirin] 81 mg tablet,delayed release (DR/EC) 81 mg PO QAM (DME) FreeStyle Cesar 3 Sensor Device See Rx Instructions .Route Qty: 6 3RF Rx Instructions: change every 14 days albuterol sulfate 90 mcg/actuation HFA aerosol inhaler 2 puff inhalation QID PRN (Reason: shortness of breath or wheezing) Qty: 8.5 0RF (DME) pen needle, diabetic [BD Radha 2nd Gen Pen Needle] 32 gauge x 5/32" needle See Rx Instructions .Route Qty: 400 3RF Rx Instructions: Use a new pen needle after each use 4x a day pantoprazole 40 mg tablet,delayed release (DR/EC) 40 mg PO QAM Rx Instructions: TAKE ONE TABLET BY MOUTH EVERY DAY levothyroxine 75 mcg tablet 75 mcg PO DAILYBB glucagon 3 mg/actuation spray,non-aerosol 3 mg intranasal ONCE PRN (Reason: Hypoglycemia) Discharge Orders: Discharge Order (Routine); Ordered 09/08/23 Ordered By: Onur Acuña Admission Data Admit Date/Time: 09/07/23 21:17 Attending Provider: Afua Gonzalez Admit Provider: Meghana Cruz Primary Care Provider: Joel Hines Other Providers: Herberth Hickey Other Interventions: Discharge Summary Assessment (RN) Last Done: 09/08/23 17:10 Supervising Physician Co-Signing Physician Notes Attending Physician Supervision Note: I independently interviewed and examined the patient and verified the franklin history and physical, reviewed labs and image studies and agree with findings and care plan noted above. Resident Activity Tracking Resident Involvement: Resident Care Provided Care Provided: [facility]
--- NOTE | 2023-09-09 20:18 | Electrocardiogram Report ---
Test Reason : Blood Pressure : / mmHG Vent. Rate : 107 BPM Atrial Rate : 107 BPM P-R Int : 136 ms QRS Dur : 082 ms QT Int : 328 ms P-R-T Axes : 053 -32 041 degrees QTc Int : 437 ms Sinus tachycardia Left axis deviation Minimal voltage criteria for LVH, may be normal variant ( R in aVL ) Abnormal ECG When compared with ECG of 05-AUG-2023 12:18, T wave inversion no longer evident in Inferior leads Confirmed by Jarrell Medina ([id number]) on 09/09/2023 8:17:48 PM Referred By: REFERRED SELF Confirmed By:Jarrell Medina
== END 2023-09-08 18:06 | disposition home or self-care (01) ==
LOC: EDINP 18:24 → ED 18:24 → SUATTDRO 21:17 → EDINP 23:28 → 2N 09-08 02:13